=== PATIENT | female | born 1995 | race African-American/Black ===

== ENCOUNTER 2016-04-18 14:21 | Emergency (ER) | payer BC ==
[~2016-04-18] VITALS: Ht 165.1 cm; Wt 85.0 kg
[2016-04-18 14:23] VITALS: BP 156/66; PULSE 86; RESP 16; TEMP 99.1; O2SAT 100
[2016-04-18] MEDS ORDERED: ERYTOIN10 RIGHT EYE (16:12)
--- NOTE | 2016-04-18 16:14 | PD ---
HPI Chief Complaint: Eye Problems/Injury Time Seen by Provider: 16:06 Travel History International Travel<30 days: No Contact w/Intl Traveler<30days: No Traveled to known affect area: No History of Present Illness HPI Patient is a 20-year-old female who presents emergency department for evaluation of right upper eyelid swelling. Patient thinks that she got some glitter eyeshadow in it on Saturday. She states she's used before with no issues. She denies any feeling of foreign body sensation, visual changes, headaches, photophobia. She states that her eye is runny. She does not wear contact lenses. [facility] Past Medical History Medical History: Denies Significant Hx ?: Not Social History Alcohol Use: No Tobacco Use: No Substance Use: No Review of Systems Except as stated in HPI: all other systems reviewed are Neg Eyes: Positive: Redness, Other (swelling) Physical Exam Narrative GENERAL: Well-nourished, well-developed patient. SKIN: Warm and dry. HEAD: Normocephalic. EYES: No scleral icterus. Mild injection with clear drainage. Right upper eyelid is edematous area for senile exam is negative for abrasion, ulceration, dendritic lesions. NECK: Supple, trachea midline. No JVD or lymphadenopathy. CARDIOVASCULAR: Regular rate and rhythm without murmurs, gallops, or rubs. RESPIRATORY: Breath sounds equal bilaterally. No accessory muscle use. GASTROINTESTINAL: Abdomen soft, non-tender, nondistended. MUSCULOSKELETAL: No cyanosis, or edema. BACK: Nontender without obvious deformity. No CVA tenderness. Data Data Last Documented VS Vital Signs Date Time Temp Pulse Resp B/P Pulse Ox O2 Delivery O2 Flow Rate FiO2 04/18/16 14:23 99.1 86 16 156/66 100 Room Air [facility] Medical Decision Making Medical Screen Exam Complete: Yes Emergency Medical Condition: Yes Interpretation(s) Vital Signs Date Time Temp Pulse Resp B/P Pulse Ox O2 Delivery O2 Flow Rate FiO2 04/18/16 14:23 99.1 86 16 156/66 100 Room Air Differential Diagnosis Stye versus conjunctivitis versus abrasion versus other Narrative Course Patient is a 20-year-old female who presents emergency for evaluation of right upper eyelid swelling. Physical examination is most consistent with a stye. Fluorescein eye exam is negative. Patient was encouraged to alternate heat and ice to the affected area. She will be provided with a prescription for erythromycin ointment. She is encouraged to return to emergency department for any new or worsening symptoms or follow with an manager estate. She verbalized understanding of these instructions. Patient is stable for discharge. Diagnosis Primary Impression: Rogelio Qualified Code: H00.011 - Hordeolum externum of right upper eyelid Referrals: Manager Of Administration Primary Care Physician Additional Instructions: Follow-up with ophthalmology Follow-up with her primary Apply warm compresses alternating with cool compresses Use medications as directed Return to emergency department for any new or worsening symptoms Med/Other Pt SpecificInfo: Prescription(s) given Scripts Erythromycin Opth Oint 5 Mg/Gm Oint1 Applic RIGHT EYE QID #1 TUBE Ref 0 Prov:Delores Smith 04/18/16 Disposition: 01 DISCHARGE HOME Condition: Stable Delores Smith Apr 18, 2016 16:14
== END 2016-04-18 16:34 | disposition home or self-care (01) ==
LOC: NEPB 14:21
DX: H00.011 Hordeolum externum right upper eyelid (principal)
CPT/HCPCS: 99283